=== PATIENT | male | born 1930 | race Caucasian/White ===

== ENCOUNTER 2018-04-11 14:40 | Inpatient (IN) ==
[2018-04-11] MEDS ORDERED: PANTOPRAZOLE 40 MG VIAL IV STA (15:14)
[2018-04-11] MEDS ORDERED: ALUM/MAG/SIMETH/LIDO VISC 1:1 30 ML BOTTLE PO STA (15:14)
[2018-04-11 15:59] LABS: Basophils # 0.1 10*3/uL (0.0-0.2); Basophils % 0.7 % (0.0-0.8); Eosinophils # 0.1 10*3/uL (0.0-0.87); Eosinophils % 0.8 % (0.00-10.9); Hematocrit 51.5 VOL% (42.0-52.0); Hemoglobin 17.2 GM/DL (14.0-18.0); Immature Granulocytes % 0.8 %; Immature Granulocytes Absolute 0.06 #; Lymphocytes # 1.3 10*3/uL (1.4-4.0); Lymphocytes % 17.2 % (21.2-54.2); Mean Corpuscular HGB Conc 33.4 GM/DL (32-36); Mean Corpuscular Hemoglobin 30 PG (27-34); Mean Corpuscular Volume 88.2 FL (87-102); Mean Platelet Volume 8.4 FL (9.6-12.0); Monocytes # 0.6 10*3/uL (0.11-0.8); Monocytes % 8.2 % (1.7-12.7); Neutrophils # 5.6 10*3/uL (1.4-7.4); Neutrophils % 72.3 % (38.7-73.9); Platelet Count 208 T/CUMM (130-400); Red Blood Count 5.84 MC/CUMM (3.8-5.5); Red Cell Distribution Width 13.9 % (9.3-17.3); White Blood Count 7.7 T/CUMM (4-12)
[2018-04-11 16:10] LABS: Albumin 3.6 G/DL (3.4-5.0); Bilirubin,Total 0.8 MG/DL (0.2-1.0); Calcium 8.6 MG/DL (8.5-10.1); Osmolality,Calculated 268.4 MOS/KG (273-304); Potassium 3.8 MMOL/L (3.5-5.1); Total Protein 7.3 G/DL (6.4-8.3)
[2018-04-11 16:20] LABS: Apearance,Urine CLEAR (Clear); Bilirubin,Urine Negative (Negative); Blood, Urine Negative (Negative); Glucose,Urine (UA) Negative (Negative); Ketones,Urine Negative (Negative); Nitrite,Urine Negative (Negative); Protein,Urine Negative; RBC,Urine 1 /HPF (0-4); Urine Color Yellow (Yellow); Urine Specific Gravity 1.013 (1.001-1.035); Urine Urobilinogen < 2.0 EU/DL (0.2-1.0); WBC,Urine <1 /HPF (0-6)
[2018-04-11] MEDS ORDERED: NITROGLYCERIN 2% OINT 1 INCH/GM PACK TOP STA (16:46)
[2018-04-11] MEDS ORDERED: ENOXAPARIN 100 MG/ML SYRINGE SUBCUT STA (16:46)
[2018-04-11] MEDS ORDERED: ASPIRIN CHEW 81 MG TABLET PO STA (16:57)
[2018-04-11] MEDS ORDERED: diphenhydrAMINE CAP 25 MG CAPSULE PO PRN (17:05)
[2018-04-11] MEDS ORDERED: POTASSIUM CHLORIDE 20 MEQ TABLET PO PRN (17:05)
[2018-04-11] MEDS ORDERED: ONDANSETRON 4 MG/2 ML VIAL IV PRN (17:05)
[2018-04-11] MEDS ORDERED: DOCUSATE SODIUM 100 MG CAPSULE PO PRN (17:05)
[2018-04-11] MEDS ORDERED: ZALEPLON 5 MG CAPSULE PO PRN (17:05)
[2018-04-11] MEDS ORDERED: MAGNESIUM SULF RIDER 4 GM in PREMIX 1 EACH IV PRN (17:05)
[2018-04-11] MEDS ORDERED: BISACODYL 5 MG TABLET PO PRN (17:05)
[2018-04-11] MEDS ORDERED: guaiFENesin/DM ER 600-30 MG TABLET PO PRN (17:05)
[2018-04-11] MEDS ORDERED: PROMETHAZINE 25 MG TABLET PO PRN (17:05)
[2018-04-11] MEDS ORDERED: MAGNESIUM SULF RIDER 2 GM in PREMIX 1 EACH IV PRN (17:05)
[2018-04-11] MEDS ORDERED: LACTULOSE 20 GM/30 ML UDCUP PO PRN (17:05)
[2018-04-11] MEDS ORDERED: MORPHINE 4 MG/1 ML VIAL IV PRN (17:05)
[2018-04-11] MEDS ORDERED: MECLIZINE 25 MG TABLET PO PRN (17:29)
[2018-04-11] MEDS ORDERED: NITROGLYCERIN SL 0.4 MG TABLET SL PRN (17:34)
[2018-04-11 17:48] LABS: Risk Ratio 4.18; Thyroid Stimulating Hormone 3.07 uIU/ml (0.358-3.74); VLDL CHOLESTEROL 42.6 MG/DL
[2018-04-11] MEDS: SODIUM CHLORIDE 0.9% 1,000 ML IV SCH (18:52)
[2018-04-11] MEDS: ATORVASTATIN 20 MG TABLET PO SCH (21:36)
[2018-04-11] MEDS: traZODone 50 MG TABLET PO SCH (21:36)
[2018-04-11] MEDS ORDERED: METOPROLOL TARTRATE 25 MG TABLET PO ONE (23:57)
[2018-04-12 04:38] LABS: Basophils # 0.1 10*3/uL (0.0-0.2); Eosinophils # 0.1 10*3/uL (0.0-0.87); Eosinophils % 1.4 % (0.00-10.9); Hematocrit 44.3 VOL% (42.0-52.0); Hemoglobin 14.9 GM/DL (14.0-18.0); Immature Granulocytes % 0.4 %; Immature Granulocytes Absolute 0.03 #; Lymphocytes # 1.7 10*3/uL (1.4-4.0); Lymphocytes % 23.8 % (21.2-54.2); Mean Corpuscular HGB Conc 33.6 GM/DL (32-36); Mean Corpuscular Hemoglobin 30 PG (27-34); Mean Corpuscular Volume 88.6 FL (87-102); Mean Platelet Volume 8.5 FL (9.6-12.0); Neutrophils # 4.4 10*3/uL (1.4-7.4); Neutrophils % 60.4 % (38.7-73.9); Platelet Count 226 T/CUMM (130-400); Red Cell Distribution Width 13.7 % (9.3-17.3); White Blood Count 7.3 T/CUMM (4-12)
[2018-04-12 04:47] LABS: Albumin 2.9 G/DL (3.4-5.0); Bilirubin,Total 0.5 MG/DL (0.2-1.0); CKMB % 5.7 %; Calcium 8.1 MG/DL (8.5-10.1); Osmolality,Calculated 263.7 MOS/KG (273-304); Potassium 3.6 MMOL/L (3.5-5.1); Total Protein 6.1 G/DL (6.4-8.3)
[2018-04-12 04:48] LABS: Troponin I 5.69 NG/ML (0.00-0.045)
[2018-04-12] MEDS ORDERED: ENOXAPARIN 100 MG/ML SYRINGE SUBCUT ONE (06:00)
[2018-04-12] MEDS: SODIUM CHLORIDE 0.9% 1,000 ML IV SCH ×2 (06:38→19:30)
[2018-04-12] MEDS ORDERED: CELECOXIB 200 MG CAPSULE PO SCH (09:00)
[2018-04-12 09:18] LABS: CKMB % 4.9 %
[2018-04-12 09:31] LABS: Troponin I 6.22 NG/ML (0.00-0.045)
[2018-04-12] MEDS: FAMOTIDINE 20 MG TABLET PO SCH (10:52)
[2018-04-12] MEDS: ASPIRIN EC 81 MG TABLET PO SCH (10:52)
[2018-04-12] MEDS: LISINOPRIL 20 MG TABLET PO SCH (10:52)
[2018-04-12] MEDS: PANTOPRAZOLE 40 MG VIAL IV SCH (10:52)
[2018-04-12] MEDS: LEVOTHYROXINE 75 MCG TABLET PO SCH (10:55)
[2018-04-12] MEDS: INDAPAMIDE 2.5 MG TABLET PO SCH (10:55)
[2018-04-12] MEDS: TAMSULOSIN 0.4 MG CAPSULE PO SCH (10:55)
[2018-04-12 12:14] LABS: CKMB % 4.3 %
[2018-04-12 12:16] LABS: Troponin I 5.35 NG/ML (0.00-0.045)
[2018-04-12] MEDS: traZODone 50 MG TABLET PO SCH (21:38)
[2018-04-12] MEDS: ATORVASTATIN 20 MG TABLET PO SCH (21:39)
[2018-04-13] MEDS: ALUMINUM/MAGNES/SIMETH MAX STR 30 ML UDCUP PO PRN ×2 (02:32→09:24)
[2018-04-13 05:02] LABS: Basophils # 0.1 10*3/uL (0.0-0.2); Basophils % 0.9 % (0.0-0.8); Eosinophils # 0.1 10*3/uL (0.0-0.87); Eosinophils % 1.9 % (0.00-10.9); Hematocrit 44.6 VOL% (42.0-52.0); Hemoglobin 14.4 GM/DL (14.0-18.0); Immature Granulocytes % 0.7 %; Immature Granulocytes Absolute 0.04 #; Lymphocytes # 1.3 10*3/uL (1.4-4.0); Lymphocytes % 23.1 % (21.2-54.2); Mean Corpuscular HGB Conc 32.3 GM/DL (32-36); Mean Corpuscular Hemoglobin 29 PG (27-34); Mean Corpuscular Volume 90.3 FL (87-102); Mean Platelet Volume 8.7 FL (9.6-12.0); Monocytes # 0.7 10*3/uL (0.11-0.8); Monocytes % 11.4 % (1.7-12.7); Neutrophils # 3.6 10*3/uL (1.4-7.4); Platelet Count 180 T/CUMM (130-400); Red Blood Count 4.94 MC/CUMM (3.8-5.5); Red Cell Distribution Width 13.8 % (9.3-17.3); White Blood Count 5.8 T/CUMM (4-12)
[2018-04-13 05:34] LABS: Blood Urea Nitrogen 16 MG/DL (7-18); Calcium 7.8 MG/DL (8.5-10.1); Glucose 106 MG/DL (74-106); Osmolality,Calculated 275.7 MOS/KG (273-304); Sodium 138 MMOL/L (136-145)
[2018-04-13] MEDS: LISINOPRIL 20 MG TABLET PO SCH (09:24)
[2018-04-13] MEDS: FAMOTIDINE 20 MG TABLET PO SCH (09:24)
[2018-04-13] MEDS: TAMSULOSIN 0.4 MG CAPSULE PO SCH (09:24)
[2018-04-13] MEDS: LEVOTHYROXINE 75 MCG TABLET PO SCH (09:24)
[2018-04-13] MEDS: INDAPAMIDE 2.5 MG TABLET PO SCH (09:24)
[2018-04-13] MEDS: PANTOPRAZOLE 40 MG VIAL IV SCH (09:28)
[2018-04-13] MEDS: ASPIRIN EC 81 MG TABLET PO SCH (09:30)
[2018-04-13] MEDS: SODIUM CHLORIDE 0.9% 1,000 ML IV SCH ×2 (09:32→23:00)
[2018-04-13] MEDS ORDERED: MAGNESIUM SULF RIDER 2 GM in PREMIX 1 EACH IV PRN (16:28)
[2018-04-13] MEDS ORDERED: POTASSIUM CHLORIDE RIDER 10 MEQ in PREMIX 1 EACH IV PRN (16:28)
[2018-04-13] MEDS: ATORVASTATIN 20 MG TABLET PO SCH (21:46)
[2018-04-13] MEDS: traZODone 50 MG TABLET PO SCH (21:46)
[2018-04-14 04:22] LABS: Basophils # 0.1 10*3/uL (0.0-0.2); Basophils % 0.8 % (0.0-0.8); Eosinophils # 0.2 10*3/uL (0.0-0.87); Eosinophils % 2.6 % (0.00-10.9); Hematocrit 45.3 VOL% (42.0-52.0); Hemoglobin 14.6 GM/DL (14.0-18.0); Immature Granulocytes % 0.5 %; Immature Granulocytes Absolute 0.03 #; Lymphocytes # 1.5 10*3/uL (1.4-4.0); Lymphocytes % 22.3 % (21.2-54.2); Mean Corpuscular HGB Conc 32.2 GM/DL (32-36); Mean Corpuscular Hemoglobin 29 PG (27-34); Mean Corpuscular Volume 90.4 FL (87-102); Mean Platelet Volume 8.4 FL (9.6-12.0); Monocytes # 0.7 10*3/uL (0.11-0.8); Neutrophils # 4.2 10*3/uL (1.4-7.4); Neutrophils % 62.8 % (38.7-73.9); Platelet Count 173 T/CUMM (130-400); Red Blood Count 5.01 MC/CUMM (3.8-5.5); White Blood Count 6.6 T/CUMM (4-12)
[2018-04-14 04:50] LABS: Calcium 7.8 MG/DL (8.5-10.1); Osmolality,Calculated 282.3 MOS/KG (273-304); Potassium 3.8 MMOL/L (3.5-5.1)
[2018-04-14] MEDS ORDERED: HEPARIN/NACL 0.9% 2 UNITS/ML 1,000 ML IV ONE (06:46)
[2018-04-14] MEDS: ASPIRIN EC 81 MG TABLET PO SCH ×2 (07:04→10:23)
[2018-04-14] MEDS: INDAPAMIDE 2.5 MG TABLET PO SCH ×2 (07:05→10:23)
[2018-04-14] MEDS: LISINOPRIL 20 MG TABLET PO SCH ×2 (07:05→10:23)
[2018-04-14] MEDS ORDERED: LIDOCAINE 1% 20 ML VIAL ONE (07:15)
[2018-04-14] MEDS ORDERED: HYDROmorphone 2 MG/1 ML VIAL ONE (07:18)
[2018-04-14] MEDS ORDERED: MIDAZOLAM 2 MG/2 ML VIAL ONE (07:18)
[2018-04-14] MEDS: TAMSULOSIN 0.4 MG CAPSULE PO SCH (10:13)
[2018-04-14] MEDS: FAMOTIDINE 20 MG TABLET PO SCH (10:13)
[2018-04-14] MEDS: PANTOPRAZOLE 40 MG VIAL IV SCH (10:13)
[2018-04-14] MEDS: LEVOTHYROXINE 75 MCG TABLET PO SCH (10:13)
[2018-04-14] MEDS: SODIUM CHLORIDE 0.9% 1,000 ML IV SCH (16:11)
[2018-04-14] MEDS: traZODone 50 MG TABLET PO SCH (20:43)
[2018-04-14] MEDS: ATORVASTATIN 20 MG TABLET PO SCH (20:43)
[2018-04-15 04:09] LABS: Basophils # 0.1 10*3/uL (0.0-0.2); Basophils % 0.7 % (0.0-0.8); Eosinophils # 0.2 10*3/uL (0.0-0.87); Eosinophils % 3.1 % (0.00-10.9); Hematocrit 43.7 VOL% (42.0-52.0); Immature Granulocytes % 0.4 %; Immature Granulocytes Absolute 0.03 #; Lymphocytes # 1.4 10*3/uL (1.4-4.0); Mean Corpuscular Hemoglobin 29 PG (27-34); Mean Corpuscular Volume 90.5 FL (87-102); Mean Platelet Volume 8.6 FL (9.6-12.0); Monocytes # 0.7 10*3/uL (0.11-0.8); Monocytes % 9.7 % (1.7-12.7); Neutrophils # 4.7 10*3/uL (1.4-7.4); Neutrophils % 66.1 % (38.7-73.9); Platelet Count 182 T/CUMM (130-400); Red Blood Count 4.83 MC/CUMM (3.8-5.5)
[2018-04-15 04:35] LABS: Calcium 7.9 MG/DL (8.5-10.1); Osmolality,Calculated 275.7 MOS/KG (273-304); Potassium 3.9 MMOL/L (3.5-5.1)
[2018-04-15] MEDS: SODIUM CHLORIDE 0.9% 1,000 ML IV SCH (05:45)
[2018-04-15] MEDS: TAMSULOSIN 0.4 MG CAPSULE PO SCH (08:51)
[2018-04-15] MEDS: LEVOTHYROXINE 75 MCG TABLET PO SCH (08:51)
[2018-04-15] MEDS: INDAPAMIDE 2.5 MG TABLET PO SCH (08:51)
[2018-04-15] MEDS: LISINOPRIL 20 MG TABLET PO SCH (08:51)
[2018-04-15] MEDS: FAMOTIDINE 20 MG TABLET PO SCH (08:51)
[2018-04-15] MEDS: PANTOPRAZOLE 40 MG VIAL IV SCH (08:52)
[2018-04-15] MEDS ORDERED: ETOMIDATE 20 MG/10 ML VIAL IV ONE (10:00)
[2018-04-15] MEDS ORDERED: PROPOFOL 200 MG/20 ML VIAL IV ONE (10:00)
[2018-04-15] MEDS ORDERED: LIDOCAINE 2% 5 ML VIAL ONE (10:00)
[2018-04-15 14:36] VITALS: BP 133/60
[2018-04-15] MEDS: ASPIRIN EC 81 MG TABLET PO SCH (15:03)
[2018-04-15] MEDS ORDERED: PANTOPRAZOLE 40 MG TABLET PO SCH (21:00)
[2018-04-15] MEDS ORDERED: CARVEDILOL 3.125 MG TABLET PO SCH (21:00)
== END 2018-04-15 15:43 | disposition home health service (06) | DRG 281 ==
LOC: N.EDINP 14:40 → N.ED 14:40 → N.TELEN 19:31
PROVIDERS: ADMIT Nurse Practitioner Gerontology; ATTEND Nurse Practitioner Gerontology
PROC: CLCCHCL (ICD-10-PCS; 2018-04-14 07:45)

== ENCOUNTER 2018-10-25 20:47 | Inpatient (IN) ==
[2018-10-25] MEDS ORDERED: SODIUM CHLORIDE 0.9% 500 ML IV STA (21:35)
[2018-10-25] MEDS ORDERED: MORPHINE 4 MG/1 ML VIAL IV STA (21:35)
[2018-10-25] MEDS ORDERED: ONDANSETRON 4 MG/2 ML VIAL IV STA (21:35)
[2018-10-25 21:55] LABS: Basophils # 0.1 10*3/uL (0.0-0.2); Basophils % 0.9 % (0.0-0.8); Eosinophils # 0.2 10*3/uL (0.0-0.87); Eosinophils % 2.3 % (0.00-10.9); Hematocrit 49.9 VOL% (42.0-52.0); Hemoglobin 16.4 GM/DL (14.0-18.0); Immature Granulocytes % 0.7 %; Immature Granulocytes Absolute 0.05 #; Lymphocytes # 1.5 10*3/uL (1.4-4.0); Lymphocytes % 21.3 % (21.2-54.2); Mean Corpuscular HGB Conc 32.9 GM/DL (32-36); Mean Corpuscular Volume 91.9 FL (87-102); Mean Platelet Volume 8.8 FL (9.6-12.0); Monocytes % 10.2 % (1.7-12.7); Neutrophils % 64.6 % (38.7-73.9); Platelet Count 191 T/CUMM (130-400); Red Blood Count 5.43 MC/CUMM (3.8-5.5); Red Cell Distribution Width 14.1 % (9.3-17.3); White Blood Count 6.9 T/CUMM (4-12)
[2018-10-25 22:04] LABS: Apearance,Urine CLEAR (Clear); Bilirubin,Urine Negative (Negative); Blood, Urine Small mg/dL (Negative); Glucose,Urine (UA) Negative (Negative); Hyaline Casts,Urine 1 /LPF (0-3); Ketones,Urine Negative (Negative); Mucus,Urine Occasional /LPF (Occasional); Nitrite,Urine Negative (Negative); Protein,Urine Negative; RBC,Urine 1 /HPF (0-4); Urine Color Yellow (Yellow); Urine Specific Gravity 1.009 (1.001-1.035); Urine Urobilinogen < 2.0 EU/DL (0.2-1.0); WBC,Urine <1 /HPF (0-6)
[2018-10-25 22:15] LABS: Alanine Aminotransferase 16 U/L (16-61); Albumin 3.7 G/DL (3.4-5.0); Alkaline Phosphatase 92 U/L (45-117); Amylase 46 U/L (25-115); Aspartate Amino Transferase 14 U/L (0-37); Blood Urea Nitrogen 10 MG/DL (7-18); Calcium 8.8 MG/DL (8.5-10.1); Glucose 136 MG/DL (74-106); Osmolality,Calculated 279.4 MOS/KG (273-304); Total Protein 7.4 G/DL (6.4-8.3)
[2018-10-26] MEDS ORDERED: ONDANSETRON 4 MG/2 ML VIAL IV PRN (00:29)
[2018-10-26] MEDS ORDERED: ACETAMINOPHEN 325 MG TABLET PO PRN (00:29)
[2018-10-26] MEDS: HYDROmorphone 2 MG/1 ML VIAL IV PRN ×2 (01:11→16:23)
[2018-10-26] MEDS: SODIUM CHLORIDE 0.9% 1,000 ML IV SCH ×2 (01:16→16:27)
[2018-10-26 01:32] LABS: Basophils % 0.5 % (0.0-0.8); Eosinophils # 0.2 10*3/uL (0.0-0.87); Eosinophils % 2.3 % (0.00-10.9); Hematocrit 47.9 VOL% (42.0-52.0); Hemoglobin 15.8 GM/DL (14.0-18.0); Immature Granulocytes % 0.5 %; Immature Granulocytes Absolute 0.04 #; Lymphocytes # 1.7 10*3/uL (1.4-4.0); Lymphocytes % 20.1 % (21.2-54.2); Mean Corpuscular Volume 90.5 FL (87-102); Mean Platelet Volume 8.9 FL (9.6-12.0); Monocytes % 9.3 % (1.7-12.7); Neutrophils % 67.3 % (38.7-73.9); Platelet Count 184 T/CUMM (130-400); Red Blood Count 5.29 MC/CUMM (3.8-5.5); Red Cell Distribution Width 13.8 % (9.3-17.3); White Blood Count 8.3 T/CUMM (4-12)
[2018-10-26 01:55] LABS: Albumin 3.4 G/DL (3.4-5.0); Bilirubin,Total 0.6 MG/DL (0.2-1.0); Calcium 8.8 MG/DL (8.5-10.1); Osmolality,Calculated 279.3 MOS/KG (273-304)
[2018-10-26] MEDS ORDERED: MECLIZINE 25 MG TABLET PO PRN (09:48)
[2018-10-26] MEDS ORDERED: NITROGLYCERIN SL 0.4 MG TABLET SL PRN (09:48)
[2018-10-26] MEDS: FAMOTIDINE 20 MG/2 ML VIAL IV SCH ×2 (09:51→21:28)
[2018-10-26] MEDS ORDERED: cefOXitin 2,000 MG in SYRINGE 1 EACH IV ONE (10:30)
[2018-10-26] MEDS ORDERED: LIDOCAINE MPF 1% /EPI 30 ML VIAL ONE (12:28)
[2018-10-26] MEDS ORDERED: BUPIVACAINE MPF 0.25% 30 ML VIAL ONE (12:28)
[2018-10-26] MEDS ORDERED: SEVOFLURANE 1 UNIT/15 MINUTE INH ONE (14:42)
[2018-10-26] MEDS ORDERED: fentaNYL 100 MCG/2 ML VIAL ONE (14:42)
[2018-10-26] MEDS ORDERED: CALCIUM CHLORIDE 1,000 MG/10 ML VIAL IV ONE (14:42)
[2018-10-26] MEDS ORDERED: PROPOFOL 200 MG/20 ML VIAL IV ONE (14:42)
[2018-10-26] MEDS ORDERED: PHENYLEPHRINE 1 MG/10 ML SYRINGE IV ONE (14:43)
[2018-10-26] MEDS ORDERED: ONDANSETRON 4 MG/2 ML VIAL ONE (14:43)
[2018-10-26] MEDS ORDERED: ePHEDrine 50 MG/ML AMP ONE (14:43)
[2018-10-26] MEDS ORDERED: ROCURONIUM 100 MG/10 ML VIAL IV ONE (14:43)
[2018-10-26] MEDS ORDERED: HALOPERIDOL 5 MG/ML AMP IM PRN (16:55)
[2018-10-26] MEDS: METOPROLOL TARTRATE 5 MG/5 ML VIAL IV SCH (18:30)
[2018-10-26] MEDS: CARVEDILOL 3.125 MG TABLET PO SCH (21:22)
[2018-10-27] MEDS: METOPROLOL TARTRATE 5 MG/5 ML VIAL IV SCH ×3 (00:46→12:00)
[2018-10-27] MEDS: SODIUM CHLORIDE 0.9% 1,000 ML IV SCH (03:04)
[2018-10-27 06:13] LABS: Basophils % 0.4 % (0.0-0.8); Eosinophils # 0.1 10*3/uL (0.0-0.87); Eosinophils % 0.8 % (0.00-10.9); Hematocrit 44.3 VOL% (42.0-52.0); Hemoglobin 14.7 GM/DL (14.0-18.0); Immature Granulocytes % 0.7 %; Immature Granulocytes Absolute 0.06 #; Lymphocytes % 11.1 % (21.2-54.2); Mean Corpuscular HGB Conc 33.2 GM/DL (32-36); Mean Corpuscular Volume 91.2 FL (87-102); Mean Platelet Volume 8.8 FL (9.6-12.0); Monocytes % 11.4 % (1.7-12.7); Neutrophils % 75.6 % (38.7-73.9); Platelet Count 173 T/CUMM (130-400); Red Blood Count 4.86 MC/CUMM (3.8-5.5); Red Cell Distribution Width 13.9 % (9.3-17.3); White Blood Count 9.2 T/CUMM (4-12)
[2018-10-27 07:43] LABS: Free T4 (Free Thyroxine) 1.07 NG/DL (0.76-1.46)
[2018-10-27] MEDS ORDERED: TAMSULOSIN 0.4 MG CAPSULE PO SCH (09:00)
[2018-10-27] MEDS ORDERED: LEVOTHYROXINE 75 MCG TABLET PO SCH (09:00)
[2018-10-27] MEDS ORDERED: INDAPAMIDE 2.5 MG TABLET PO SCH (09:00)
[2018-10-27] MEDS ORDERED: LISINOPRIL 20 MG TABLET PO SCH (09:00)
[2018-10-27] MEDS ORDERED: ASPIRIN EC 81 MG TABLET PO SCH (09:00)
[2018-10-27] MEDS ORDERED: PANTOPRAZOLE 40 MG TABLET PO SCH (09:00)
[2018-10-27] MEDS: CARVEDILOL 3.125 MG TABLET PO SCH (09:19)
[2018-10-27] MEDS: FAMOTIDINE 20 MG/2 ML VIAL IV SCH (09:20)
[2018-10-27 12:14] VITALS: BP 112/64
== END 2018-10-27 12:07 | disposition home or self-care (01) | DRG 343 ==
LOC: N.ED 20:47 → N.EDINP 23:38 → N.3E 23:59
PROVIDERS: ADMIT Surgery; ATTEND Surgery

== ENCOUNTER 2018-10-29 18:50 | Observation (INO) ==
[2018-10-29 20:18] LABS: Basophils # 0.1 10*3/uL (0.0-0.2); Basophils % 0.8 % (0.0-0.8); Eosinophils # 0.5 10*3/uL (0.0-0.87); Eosinophils % 8.7 % (0.00-10.9); Hematocrit 45.3 VOL% (42.0-52.0); Hemoglobin 14.9 GM/DL (14.0-18.0); Immature Granulocytes % 0.8 %; Immature Granulocytes Absolute 0.05 #; Lymphocytes # 1.5 10*3/uL (1.4-4.0); Lymphocytes % 23.9 % (21.2-54.2); Mean Corpuscular HGB Conc 32.9 GM/DL (32-36); Mean Platelet Volume 8.5 FL (9.6-12.0); Monocytes % 11.3 % (1.7-12.7); Neutrophils % 54.5 % (38.7-73.9); Platelet Count 203 T/CUMM (130-400); Red Blood Count 4.98 MC/CUMM (3.8-5.5); Red Cell Distribution Width 13.7 % (9.3-17.3); White Blood Count 6.2 T/CUMM (4-12)
[2018-10-29 20:39] LABS: Albumin 3.2 G/DL (3.4-5.0); Bilirubin,Total 0.4 MG/DL (0.2-1.0); Calcium 8.8 MG/DL (8.5-10.1); Osmolality,Calculated 277.5 MOS/KG (273-304); Total Protein 7.1 G/DL (6.4-8.3)
[2018-10-29 20:44] LABS: Apearance,Urine CLEAR (Clear); Bilirubin,Urine Negative (Negative); Blood, Urine Negative (Negative); Glucose,Urine (UA) Negative (Negative); Ketones,Urine Negative (Negative); Mucus,Urine Occasional /LPF (Occasional); Nitrite,Urine Negative (Negative); Protein,Urine Negative; Urine Color Colorless (Yellow); Urine Specific Gravity 1.008 (1.001-1.035); Urine Urobilinogen < 2.0 EU/DL (0.2-1.0); WBC,Urine <1 /HPF (0-6)
[2018-10-29] MEDS ORDERED: ACETAMINOPHEN 325 MG TABLET PO PRN (21:02)
[2018-10-29] MEDS ORDERED: ONDANSETRON 4 MG/2 ML VIAL IV PRN (21:02)
[2018-10-29] MEDS: DEXTROSE 5% LACTATED RINGERS 1,000 ML IV SCH (23:07)
[2018-10-30] MEDS: PANTOPRAZOLE 40 MG VIAL IV SCH (08:28)
[2018-10-30] MEDS ORDERED: NITROGLYCERIN SL 0.4 MG TABLET SL PRN (11:09)
[2018-10-30] MEDS ORDERED: MECLIZINE 25 MG TABLET PO PRN (11:09)
[2018-10-30] MEDS: PANTOPRAZOLE 40 MG TABLET PO SCH (11:38)
[2018-10-30] MEDS: LEVOTHYROXINE 75 MCG TABLET PO SCH (11:39)
[2018-10-30] MEDS: CELECOXIB 200 MG CAPSULE PO SCH (11:40)
[2018-10-30] MEDS: TAMSULOSIN 0.4 MG CAPSULE PO SCH (11:41)
[2018-10-30] MEDS: CARVEDILOL 3.125 MG TABLET PO SCH ×2 (11:41→21:39)
[2018-10-30] MEDS: INDAPAMIDE 2.5 MG TABLET PO SCH (11:42)
[2018-10-30] MEDS: LISINOPRIL 20 MG TABLET PO SCH (11:45)
[2018-10-30] MEDS: DEXTROSE 5% LACTATED RINGERS 1,000 ML IV SCH (17:27)
[2018-10-30] MEDS: METOCLOPRAMIDE 10 MG/2 ML VIAL IV SCH ×2 (17:27→23:26)
[2018-10-30] MEDS: BISACODYL 5 MG TABLET PO SCH (17:35)
[2018-10-30] MEDS ORDERED: POLYETHYLENE GLYCOL POWDER 255 GM BOTTLE PO ONE (18:00)
[2018-10-30] MEDS: ATORVASTATIN 20 MG TABLET PO SCH (21:40)
[2018-10-30] MEDS: traZODone 50 MG TABLET PO SCH (21:40)
[2018-10-31] MEDS: BISACODYL 5 MG TABLET PO SCH ×2 (02:16→09:30)
[2018-10-31] MEDS: LEVOTHYROXINE 75 MCG TABLET PO SCH (06:35)
[2018-10-31] MEDS: METOCLOPRAMIDE 10 MG/2 ML VIAL IV SCH ×2 (06:35→13:44)
[2018-10-31] MEDS: LISINOPRIL 20 MG TABLET PO SCH (09:32)
[2018-10-31] MEDS: CELECOXIB 200 MG CAPSULE PO SCH (09:32)
[2018-10-31] MEDS: CARVEDILOL 3.125 MG TABLET PO SCH ×2 (09:32→21:32)
[2018-10-31] MEDS: PANTOPRAZOLE 40 MG VIAL IV SCH (09:32)
[2018-10-31] MEDS: INDAPAMIDE 2.5 MG TABLET PO SCH (09:32)
[2018-10-31] MEDS: ASPIRIN EC 81 MG TABLET PO SCH (09:32)
[2018-10-31] MEDS: PANTOPRAZOLE 40 MG TABLET PO SCH (09:33)
[2018-10-31] MEDS: TAMSULOSIN 0.4 MG CAPSULE PO SCH (09:33)
[2018-10-31] MEDS: DEXTROSE 5% LACTATED RINGERS 1,000 ML IV SCH (12:43)
[2018-10-31] MEDS ORDERED: LINACLOTIDE 145 MCG CAPSULE PO ONE (14:30)
[2018-10-31] MEDS: ATORVASTATIN 20 MG TABLET PO SCH (21:32)
[2018-10-31] MEDS: traZODone 50 MG TABLET PO SCH (21:32)
[2018-11-01] MEDS: LEVOTHYROXINE 75 MCG TABLET PO SCH (06:13)
[2018-11-01] MEDS ORDERED: LINACLOTIDE 145 MCG CAPSULE PO SCH (07:30)
[2018-11-01] MEDS: INDAPAMIDE 2.5 MG TABLET PO SCH (08:40)
[2018-11-01] MEDS: PANTOPRAZOLE 40 MG TABLET PO SCH (08:41)
[2018-11-01] MEDS: CARVEDILOL 3.125 MG TABLET PO SCH (08:41)
[2018-11-01] MEDS: LISINOPRIL 20 MG TABLET PO SCH (08:42)
[2018-11-01] MEDS: TAMSULOSIN 0.4 MG CAPSULE PO SCH (08:42)
[2018-11-01] MEDS: ASPIRIN EC 81 MG TABLET PO SCH (08:42)
[2018-11-01] MEDS: CELECOXIB 200 MG CAPSULE PO SCH (08:42)
[2018-11-01 11:26] VITALS: BP 138/74
== END 2018-11-01 11:50 | disposition home or self-care (01) ==
LOC: N.ED 18:50 → N.EDINP 18:50 → N.3E 21:30
PROVIDERS: ADMIT Surgery; ATTEND Surgery

== ENCOUNTER 2021-10-18 12:26 | Inpatient (IN) ==
[2021-10-18 14:47] LABS: Basophils % 0.3 % (0.0-0.8); Eosinophils % 0.3 % (0.00-10.9); Hematocrit 44.1 VOL% (42.0-52.0); Hemoglobin 15.6 GM/DL (14.0-18.0); Immature Granulocytes % 1.2 %; Immature Granulocytes Absolute 0.15 #; Lymphocytes % 7.9 % (21.2-54.2); Mean Corpuscular HGB Conc 35.4 GM/DL (32-36); Mean Corpuscular Volume 87.3 FL (87-102); Mean Platelet Volume 8.2 FL (9.6-12.0); Monocytes # 1.3 10*3/uL (0.11-0.8); Monocytes % 10.4 % (1.7-12.7); Neutrophils % 79.9 % (38.7-73.9); Platelet Count 196 T/CUMM (130-400); Red Blood Count 5.05 MC/CUMM (3.8-5.5); Red Cell Distribution Width 14.3 % (9.3-17.3); White Blood Count 12.9 T/CUMM (4-12)
[2021-10-18 14:56] LABS: Hyaline Casts,Urine 13 /LPF (0-3); Mucus,Urine Few /LPF (Occasional)
[2021-10-18 14:58] LABS: Glucose,Urine (UA) Negative (Negative); Ketones,Urine 15 mg/dL (Negative); Nitrite,Urine Negative (Negative); Protein,Urine 100 mg/dL (Negative); Urine Appearance Cloudy (Clear); Urine Color Yellow (Yellow); Urine pH > 9.0 (4.5-8.0)
[2021-10-18 14:59] LABS: Bilirubin,Urine Moderate mg/dL (Negative); Blood, Urine Negative (Negative); Triple Phosphate Crystal,Urine Many /HPF (Few); Urine Urobilinogen 0.2 eU/dL (<2.0)
[2021-10-18 15:11] LABS: Albumin 3.3 G/DL (3.4-5.0); Bilirubin,Total 0.8 MG/DL (0.20-1.00); Calcium 8.6 MG/DL (8.5-10.1); Osmolality,Calculated 254.8 MOS/KG (273-304); Potassium 3.5 MMOL/L (3.5-5.1); Total Protein 6.4 G/DL (6.4-8.2)
[2021-10-18 15:20] LABS: INR 0.9; PT Patient Result 10.5 SECS (10.1-12.1)
[2021-10-18] MEDS ORDERED: SODIUM CHLORIDE 0.9% 500 ML IV STA (15:32)
[2021-10-18] MEDS ORDERED: ONDANSETRON 4 MG/2 ML VIAL IV PRN (15:49)
[2021-10-18] MEDS ORDERED: GLUCAGON 1 MG VIAL IM PRN (15:49)
[2021-10-18] MEDS ORDERED: DEXTROSE 10% 250 ML BAG IV PRN (15:55)
[2021-10-18] MEDS: INSULIN REGULAR 100 UNIT/ML SUBCUT SCH ×2 (16:28→22:27)
[2021-10-18] MEDS: SODIUM CHLORIDE 0.9% 1,000 ML IV SCH (19:25)
[2021-10-18] MEDS: PANTOPRAZOLE 40 MG TABLET PO SCH (19:26)
[2021-10-18] MEDS: ALBUTEROL/IPRATROPIUM 3 ML NEB RESP TX SCH (20:03)
[2021-10-18] MEDS: ENOXAPARIN 40 MG/0.4 ML SYRINGE SUBCUT SCH (22:27)
[2021-10-18] MEDS: AMITRIPTYLINE 100 MG TABLET PO SCH (23:15)
[2021-10-19] MEDS: ALBUTEROL/IPRATROPIUM 3 ML NEB RESP TX SCH ×4 (00:34→19:10)
[2021-10-19] MEDS: SODIUM CHLORIDE 0.9% 1,000 ML IV SCH (05:37)
[2021-10-19 06:30] LABS: Basophils % 0.4 % (0.0-0.8); Eosinophils # 0.1 10*3/uL (0.0-0.87); Eosinophils % 0.5 % (0.00-10.9); Hematocrit 43.8 VOL% (42.0-52.0); Hemoglobin 15.1 GM/DL (14.0-18.0); Immature Granulocytes % 1.5 %; Immature Granulocytes Absolute 0.15 #; Lymphocytes # 1.2 10*3/uL (1.4-4.0); Lymphocytes % 12.4 % (21.2-54.2); Mean Corpuscular HGB Conc 34.5 GM/DL (32-36); Mean Corpuscular Volume 88.1 FL (87-102); Mean Platelet Volume 8.4 FL (9.6-12.0); Monocytes # 0.9 10*3/uL (0.11-0.8); Monocytes % 9.4 % (1.7-12.7); Neutrophils % 75.8 % (38.7-73.9); Platelet Count 208 T/CUMM (130-400); Red Blood Count 4.97 MC/CUMM (3.8-5.5); Red Cell Distribution Width 14.2 % (9.3-17.3); White Blood Count 9.7 T/CUMM (4-12)
[2021-10-19 06:58] LABS: Albumin 3.1 G/DL (3.4-5.0); Bilirubin,Total 0.9 MG/DL (0.20-1.00); Calcium 8.6 MG/DL (8.5-10.1); Osmolality,Calculated 258.1 MOS/KG (273-304); Potassium 3.1 MMOL/L (3.5-5.1); Total Protein 6.1 G/DL (6.4-8.2)
[2021-10-19] MEDS ORDERED: AZITHROMYCIN INJ 500 MG in SODIUM CHLORIDE 0.9% 250 ML IV SCH (09:00)
[2021-10-19] MEDS ORDERED: POTASSIUM CHLORIDE 20 MEQ TABLET PO ONE (09:00)
[2021-10-19] MEDS: PANTOPRAZOLE 40 MG TABLET PO SCH (09:57)
[2021-10-19] MEDS: INSULIN REGULAR 100 UNIT/ML SUBCUT SCH ×4 (09:58→20:16)
[2021-10-19] MEDS ORDERED: cefTRIAXone 1,000 MG in SODIUM CHLORIDE 0.9% 100 ML IV SCH (10:00)
[2021-10-19] MEDS: LACTATED RINGERS 1,000 ML IV SCH ×2 (10:04→23:24)
[2021-10-19] MEDS: PIPERACILLIN/TAZOBACTAM 3,375 MG in SODIUM CHLORIDE 0.9% 100 ML IV SCH ×2 (10:04→18:09)
[2021-10-19 12:01] LABS: Calcium 8.1 MG/DL (8.5-10.1); Osmolality,Calculated 259.1 MOS/KG (273-304); Potassium 3.2 MMOL/L (3.5-5.1)
[2021-10-19] MEDS: DOCUSATE SODIUM 100 MG CAPSULE PO SCH ×2 (16:29→20:16)
[2021-10-19] MEDS: ENOXAPARIN 40 MG/0.4 ML SYRINGE SUBCUT SCH (20:16)
[2021-10-19] MEDS: AMITRIPTYLINE 100 MG TABLET PO SCH (20:16)
[2021-10-19] MEDS: ACETAMINOPHEN 325 MG TABLET PO PRN (20:16)
[2021-10-19] MEDS ORDERED: LORazepam 0.5 MG TABLET PO ONE (22:47)
[2021-10-20] MEDS: ACETAMINOPHEN 325 MG TABLET PO PRN (00:35)
[2021-10-20] MEDS: ALBUTEROL/IPRATROPIUM 3 ML NEB RESP TX SCH ×4 (00:50→19:02)
[2021-10-20] MEDS: PIPERACILLIN/TAZOBACTAM 3,375 MG in SODIUM CHLORIDE 0.9% 100 ML IV SCH ×4 (02:20→16:55)
[2021-10-20] MEDS: ZIPRASIDONE 20 MG/1 ML VIAL IM PRN (02:42)
[2021-10-20 05:26] LABS: Basophils # 0.1 10*3/uL (0.0-0.2); Basophils % 0.5 % (0.0-0.8); Eosinophils % 0.4 % (0.00-10.9); Hematocrit 42.6 VOL% (42.0-52.0); Hemoglobin 14.9 GM/DL (14.0-18.0); Immature Granulocytes % 1.4 %; Immature Granulocytes Absolute 0.15 #; Lymphocytes # 0.8 10*3/uL (1.4-4.0); Lymphocytes % 7.1 % (21.2-54.2); Mean Corpuscular Volume 88.6 FL (87-102); Mean Platelet Volume 8.1 FL (9.6-12.0); Monocytes % 9.2 % (1.7-12.7); Neutrophils % 81.4 % (38.7-73.9); Platelet Count 198 T/CUMM (130-400); Red Blood Count 4.81 MC/CUMM (3.8-5.5); Red Cell Distribution Width 14.1 % (9.3-17.3); White Blood Count 10.5 T/CUMM (4-12)
[2021-10-20 05:47] LABS: Albumin 2.7 G/DL (3.4-5.0); Bilirubin,Total 0.9 MG/DL (0.20-1.00); Calcium 8.3 MG/DL (8.5-10.1); Osmolality,Calculated 259.7 MOS/KG (273-304); Potassium 3.3 MMOL/L (3.5-5.1); Total Protein 5.7 G/DL (6.4-8.2)
[2021-10-20] MEDS: INSULIN REGULAR 100 UNIT/ML SUBCUT SCH ×4 (07:29→20:10)
[2021-10-20] MEDS: DOCUSATE SODIUM 100 MG CAPSULE PO SCH ×2 (08:59→20:06)
[2021-10-20] MEDS: PANTOPRAZOLE 40 MG TABLET PO SCH (08:59)
[2021-10-20] MEDS ORDERED: NITROGLYCERIN SL 0.4 MG TABLET SL PRN (09:54)
[2021-10-20] MEDS ORDERED: MAGNESIUM SULF RIDER 4 GM/100 ML PREMIX IV PRN (09:54)
[2021-10-20] MEDS ORDERED: MAGNESIUM SULF RIDER 2 GM/50 ML PREMIX IV PRN (09:54)
[2021-10-20] MEDS: SODIUM CHLORIDE 0.9% 1,000 ML IV SCH (13:42)
[2021-10-20] MEDS: carvediloL 3.125 MG TABLET PO SCH (16:49)
[2021-10-20] MEDS: TERAZOSIN 5 MG CAPSULE PO SCH (20:06)
[2021-10-20] MEDS: AMITRIPTYLINE 100 MG TABLET PO SCH (20:06)
[2021-10-20] MEDS: QUEtiapine 25 MG TABLET PO SCH (20:07)
[2021-10-20] MEDS: ENOXAPARIN 40 MG/0.4 ML SYRINGE SUBCUT SCH (20:07)
[2021-10-20] MEDS: FLUTICASONE 50 MCG NASAL SPRAY 16 GM BOTTLE BOTH NARES SCH (20:09)
[2021-10-21] MEDS: ALBUTEROL/IPRATROPIUM 3 ML NEB RESP TX SCH ×4 (00:02→19:27)
[2021-10-21] MEDS: PIPERACILLIN/TAZOBACTAM 3,375 MG in SODIUM CHLORIDE 0.9% 100 ML IV SCH ×3 (00:10→17:38)
[2021-10-21] MEDS: POTASSIUM CHLORIDE 20 MEQ TABLET PO PRN ×5 (00:11→21:10)
[2021-10-21] MEDS ORDERED: ONDANSETRON 4 MG/2 ML VIAL IV PRN (00:25)
[2021-10-21] MEDS: ACETAMINOPHEN 325 MG TABLET PO PRN (01:33)
[2021-10-21] MEDS: NICOTINE 21 MG/24 HR PATCH TRANSDERM PRN (01:47)
[2021-10-21 06:04] LABS: Basophils # 0.1 10*3/uL (0.0-0.2); Basophils % 0.5 % (0.0-0.8); Eosinophils # 0.1 10*3/uL (0.0-0.87); Eosinophils % 0.9 % (0.00-10.9); Hematocrit 40.6 VOL% (42.0-52.0); Immature Granulocytes % 1.2 %; Immature Granulocytes Absolute 0.12 #; Lymphocytes % 9.9 % (21.2-54.2); Mean Corpuscular HGB Conc 34.5 GM/DL (32-36); Mean Corpuscular Volume 89.4 FL (87-102); Mean Platelet Volume 7.9 FL (9.6-12.0); Monocytes % 10.1 % (1.7-12.7); Neutrophils % 77.4 % (38.7-73.9); Platelet Count 182 T/CUMM (130-400); Red Blood Count 4.54 MC/CUMM (3.8-5.5); Red Cell Distribution Width 14.2 % (9.3-17.3); White Blood Count 10.1 T/CUMM (4-12)
[2021-10-21] MEDS: LEVOTHYROXINE 75 MCG TABLET PO SCH (06:12)
[2021-10-21 06:21] LABS: Calcium 8.4 MG/DL (8.5-10.1); Osmolality,Calculated 255.1 MOS/KG (273-304); Potassium 3.3 MMOL/L (3.5-5.1)
[2021-10-21] MEDS: SODIUM CHLORIDE 0.9% 1,000 ML IV SCH ×2 (08:14→18:00)
[2021-10-21] MEDS: INSULIN REGULAR 100 UNIT/ML SUBCUT SCH ×4 (08:16→21:10)
[2021-10-21] MEDS: ZIPRASIDONE 20 MG/1 ML VIAL IM PRN (10:21)
[2021-10-21] MEDS: carvediloL 3.125 MG TABLET PO SCH ×2 (10:22→17:38)
[2021-10-21] MEDS: FINASTERIDE 5 MG TABLET PO SCH (10:22)
[2021-10-21] MEDS: DOCUSATE SODIUM 100 MG CAPSULE PO SCH ×2 (10:22→21:09)
[2021-10-21] MEDS: ATORVASTATIN 20 MG TABLET PO SCH (10:22)
[2021-10-21] MEDS: LINACLOTIDE 145 MCG CAPSULE PO SCH (10:27)
[2021-10-21] MEDS: FLUTICASONE 50 MCG NASAL SPRAY 16 GM BOTTLE BOTH NARES SCH ×2 (10:27→21:10)
[2021-10-21] MEDS: methylPREDNISolone SOD SUC 40 MG/1 ML VIAL IV SCH (17:38)
[2021-10-21 20:55] LABS: Mucus,Urine Occasional /LPF (Occasional); RBC,Urine 5 /HPF (0-4); Urine Appearance Clear (Clear); Urine Color Yellow (Yellow)
[2021-10-21 20:56] LABS: Bilirubin,Urine Negative (Negative); Blood, Urine Small mg/dL (Negative); Glucose,Urine (UA) 250 mg/dL (Negative); Ketones,Urine Trace mg/dL (Negative); Nitrite,Urine Negative (Negative); Protein,Urine Negative (Negative); Urine Urobilinogen 0.2 eU/dL (<2.0)
[2021-10-21] MEDS: QUEtiapine 25 MG TABLET PO SCH (21:09)
[2021-10-21] MEDS: AMITRIPTYLINE 100 MG TABLET PO SCH (21:10)
[2021-10-21] MEDS: ENOXAPARIN 40 MG/0.4 ML SYRINGE SUBCUT SCH (21:10)
[2021-10-21] MEDS: TERAZOSIN 5 MG CAPSULE PO SCH (21:10)
[2021-10-22] MEDS: ALBUTEROL/IPRATROPIUM 3 ML NEB RESP TX SCH ×4 (00:14→19:37)
[2021-10-22] MEDS: SODIUM CHLORIDE 0.9% 1,000 ML IV SCH ×2 (00:50→15:07)
[2021-10-22] MEDS: POTASSIUM CHLORIDE 20 MEQ TABLET PO PRN (01:04)
[2021-10-22] MEDS: PIPERACILLIN/TAZOBACTAM 3,375 MG in SODIUM CHLORIDE 0.9% 100 ML IV SCH ×2 (01:04→09:23)
[2021-10-22] MEDS: methylPREDNISolone SOD SUC 40 MG/1 ML VIAL IV SCH (02:12)
[2021-10-22] MEDS: LEVOTHYROXINE 75 MCG TABLET PO SCH (05:51)
[2021-10-22 06:55] LABS: Basophils % 0.2 % (0.0-0.8); Hematocrit 42.7 VOL% (42.0-52.0); Hemoglobin 14.3 GM/DL (14.0-18.0); Immature Granulocytes % 0.9 %; Immature Granulocytes Absolute 0.14 #; Lymphocytes # 0.6 10*3/uL (1.4-4.0); Lymphocytes % 3.9 % (21.2-54.2); Mean Corpuscular HGB Conc 33.5 GM/DL (32-36); Mean Corpuscular Volume 92.4 FL (87-102); Mean Platelet Volume 8.3 FL (9.6-12.0); Monocytes % 6.7 % (1.7-12.7); Neutrophils % 88.3 % (38.7-73.9); Platelet Count 212 T/CUMM (130-400); Red Blood Count 4.62 MC/CUMM (3.8-5.5); Red Cell Distribution Width 14.6 % (9.3-17.3); White Blood Count 14.9 T/CUMM (4-12)
[2021-10-22 07:14] LABS: Calcium 8.2 MG/DL (8.5-10.1); Osmolality,Calculated 265.4 MOS/KG (273-304); Potassium 3.9 MMOL/L (3.5-5.1)
[2021-10-22 07:22] LABS: Lymphocytes 6 % (20-55); Platelet Estimate Adequate; Total Cells Counted 100
[2021-10-22 07:24] LABS: Risk Ratio 2.23; VLDL Cholesterol 13.6 MG/DL
[2021-10-22] MEDS ORDERED: ERGOCALCIFEROL 50,000 UNIT CAPSULE PO SCH (08:00)
[2021-10-22] MEDS: INSULIN REGULAR 100 UNIT/ML SUBCUT SCH ×4 (08:33→22:03)
[2021-10-22] MEDS: FINASTERIDE 5 MG TABLET PO SCH (09:21)
[2021-10-22] MEDS: carvediloL 3.125 MG TABLET PO SCH ×2 (09:21→17:21)
[2021-10-22] MEDS: LINACLOTIDE 145 MCG CAPSULE PO SCH (09:22)
[2021-10-22] MEDS: ATORVASTATIN 20 MG TABLET PO SCH (09:22)
[2021-10-22] MEDS: DOCUSATE SODIUM 100 MG CAPSULE PO SCH ×2 (09:23→22:05)
[2021-10-22] MEDS: FLUTICASONE 50 MCG NASAL SPRAY 16 GM BOTTLE BOTH NARES SCH ×2 (09:23→22:05)
[2021-10-22] MEDS: ENOXAPARIN 40 MG/0.4 ML SYRINGE SUBCUT SCH (22:04)
[2021-10-22] MEDS: AMITRIPTYLINE 100 MG TABLET PO SCH (22:05)
[2021-10-22] MEDS: QUEtiapine 25 MG TABLET PO SCH (22:05)
[2021-10-22] MEDS: TERAZOSIN 5 MG CAPSULE PO SCH (22:08)
[2021-10-23] MEDS: ALBUTEROL/IPRATROPIUM 3 ML NEB RESP TX SCH ×4 (00:07→19:01)
[2021-10-23 05:49] LABS: Basophils # 0.1 10*3/uL (0.0-0.2); Basophils % 0.4 % (0.0-0.8); Eosinophils # 0.1 10*3/uL (0.0-0.87); Eosinophils % 0.5 % (0.00-10.9); Hematocrit 43.5 VOL% (42.0-52.0); Hemoglobin 14.6 GM/DL (14.0-18.0); Immature Granulocytes % 1.2 %; Immature Granulocytes Absolute 0.15 #; Lymphocytes # 0.9 10*3/uL (1.4-4.0); Mean Corpuscular HGB Conc 33.6 GM/DL (32-36); Mean Corpuscular Volume 91.2 FL (87-102); Mean Platelet Volume 8.3 FL (9.6-12.0); Monocytes % 7.3 % (1.7-12.7); Neutrophils % 83.6 % (38.7-73.9); Platelet Count 208 T/CUMM (130-400); Red Blood Count 4.77 MC/CUMM (3.8-5.5); Red Cell Distribution Width 14.5 % (9.3-17.3)
[2021-10-23 06:04] LABS: Calcium 8.4 MG/DL (8.5-10.1); Osmolality,Calculated 258.8 MOS/KG (273-304)
[2021-10-23] MEDS: LEVOTHYROXINE 75 MCG TABLET PO SCH (06:25)
[2021-10-23] MEDS: carvediloL 3.125 MG TABLET PO SCH ×2 (08:58→18:36)
[2021-10-23] MEDS: INSULIN REGULAR 100 UNIT/ML SUBCUT SCH ×4 (08:58→23:01)
[2021-10-23] MEDS: DOCUSATE SODIUM 100 MG CAPSULE PO SCH ×2 (08:59→20:07)
[2021-10-23] MEDS: POTASSIUM CHLORIDE 20 MEQ TABLET PO PRN ×2 (08:59→16:51)
[2021-10-23] MEDS: predniSONE 20 MG TABLET PO SCH (08:59)
[2021-10-23] MEDS: ATORVASTATIN 20 MG TABLET PO SCH (08:59)
[2021-10-23] MEDS: FINASTERIDE 5 MG TABLET PO SCH (08:59)
[2021-10-23] MEDS: LINACLOTIDE 145 MCG CAPSULE PO SCH (09:00)
[2021-10-23] MEDS: FLUTICASONE 50 MCG NASAL SPRAY 16 GM BOTTLE BOTH NARES SCH ×2 (09:00→23:08)
[2021-10-23 22:55] LABS: Hematocrit 41.8 VOL% (42.0-52.0); Hemoglobin 14.2 GM/DL (14.0-18.0)
[2021-10-23] MEDS: ENOXAPARIN 40 MG/0.4 ML SYRINGE SUBCUT SCH (23:06)
[2021-10-23] MEDS: TERAZOSIN 5 MG CAPSULE PO SCH (23:07)
[2021-10-23] MEDS: AMITRIPTYLINE 100 MG TABLET PO SCH (23:07)
[2021-10-23] MEDS: QUEtiapine 25 MG TABLET PO SCH (23:07)
[2021-10-24] MEDS: ALBUTEROL/IPRATROPIUM 3 ML NEB RESP TX SCH ×4 (00:19→19:16)
[2021-10-24 05:14] LABS: Hematocrit 38.4 VOL% (42.0-52.0); Hemoglobin 13.2 GM/DL (14.0-18.0)
[2021-10-24] MEDS: LEVOTHYROXINE 75 MCG TABLET PO SCH (06:15)
[2021-10-24] MEDS: INSULIN REGULAR 100 UNIT/ML SUBCUT SCH ×4 (08:08→20:50)
[2021-10-24 08:55] LABS: Basophils # 0.1 10*3/uL (0.0-0.2); Basophils % 0.4 % (0.0-0.8); Eosinophils # 0.1 10*3/uL (0.0-0.87); Eosinophils % 0.6 % (0.00-10.9); Hematocrit 38.3 VOL% (42.0-52.0); Hemoglobin 13.2 GM/DL (14.0-18.0); Immature Granulocytes % 1.1 %; Immature Granulocytes Absolute 0.13 #; Lymphocytes # 0.6 10*3/uL (1.4-4.0); Lymphocytes % 5.3 % (21.2-54.2); Mean Corpuscular HGB Conc 34.5 GM/DL (32-36); Mean Corpuscular Volume 89.1 FL (87-102); Mean Platelet Volume 8.2 FL (9.6-12.0); Monocytes # 0.8 10*3/uL (0.11-0.8); Monocytes % 6.9 % (1.7-12.7); Neutrophils % 85.7 % (38.7-73.9); Platelet Count 194 T/CUMM (130-400); Red Cell Distribution Width 14.4 % (9.3-17.3); White Blood Count 12.1 T/CUMM (4-12)
[2021-10-24] MEDS: FINASTERIDE 5 MG TABLET PO SCH (09:09)
[2021-10-24] MEDS: ATORVASTATIN 20 MG TABLET PO SCH (09:09)
[2021-10-24] MEDS: predniSONE 20 MG TABLET PO SCH (09:09)
[2021-10-24] MEDS: carvediloL 3.125 MG TABLET PO SCH ×2 (09:10→16:50)
[2021-10-24] MEDS: FLUTICASONE 50 MCG NASAL SPRAY 16 GM BOTTLE BOTH NARES SCH ×2 (09:12→21:36)
[2021-10-24 09:17] LABS: Calcium 8.2 MG/DL (8.5-10.1); Osmolality,Calculated 256.9 MOS/KG (273-304); Potassium 3.1 MMOL/L (3.5-5.1)
[2021-10-24] MEDS: LINACLOTIDE 145 MCG CAPSULE PO SCH (09:54)
[2021-10-24] MEDS: DOCUSATE SODIUM 100 MG CAPSULE PO SCH ×2 (09:54→20:50)
[2021-10-24] MEDS: SODIUM CHLORIDE 0.9% 1,000 ML IV SCH ×2 (17:03→18:09)
[2021-10-24] MEDS: AMITRIPTYLINE 100 MG TABLET PO SCH (20:50)
[2021-10-24] MEDS: ENOXAPARIN 40 MG/0.4 ML SYRINGE SUBCUT SCH (20:50)
[2021-10-24] MEDS: QUEtiapine 25 MG TABLET PO SCH (20:51)
[2021-10-24] MEDS: TERAZOSIN 5 MG CAPSULE PO SCH (20:51)
[2021-10-25] MEDS: ALBUTEROL/IPRATROPIUM 3 ML NEB RESP TX SCH ×4 (00:11→20:30)
[2021-10-25 05:54] LABS: Basophils % 0.3 % (0.0-0.8); Eosinophils % 0.2 % (0.00-10.9); Hematocrit 40.8 VOL% (42.0-52.0); Hemoglobin 13.8 GM/DL (14.0-18.0); Immature Granulocytes % 2.6 %; Immature Granulocytes Absolute 0.31 #; Lymphocytes # 0.9 10*3/uL (1.4-4.0); Lymphocytes % 7.1 % (21.2-54.2); Mean Corpuscular HGB Conc 33.8 GM/DL (32-36); Mean Corpuscular Volume 89.3 FL (87-102); Mean Platelet Volume 8.1 FL (9.6-12.0); Monocytes % 8.4 % (1.7-12.7); Neutrophils % 81.4 % (38.7-73.9); Platelet Count 211 T/CUMM (130-400); Red Blood Count 4.57 MC/CUMM (3.8-5.5); Red Cell Distribution Width 14.3 % (9.3-17.3); White Blood Count 12.1 T/CUMM (4-12)
[2021-10-25] MEDS: LEVOTHYROXINE 75 MCG TABLET PO SCH (06:11)
[2021-10-25 06:22] LABS: Calcium 8.5 MG/DL (8.5-10.1); Osmolality,Calculated 264.4 MOS/KG (273-304)
[2021-10-25] MEDS: SODIUM CHLORIDE 0.9% 1,000 ML IV SCH ×4 (08:31→23:00)
[2021-10-25] MEDS: INSULIN REGULAR 100 UNIT/ML SUBCUT SCH ×4 (08:32→20:00)
[2021-10-25] MEDS: DOCUSATE SODIUM 100 MG CAPSULE PO SCH ×2 (10:16→20:00)
[2021-10-25] MEDS: FINASTERIDE 5 MG TABLET PO SCH (10:17)
[2021-10-25] MEDS: carvediloL 3.125 MG TABLET PO SCH (10:17)
[2021-10-25] MEDS: ATORVASTATIN 20 MG TABLET PO SCH (10:17)
[2021-10-25] MEDS: LINACLOTIDE 145 MCG CAPSULE PO SCH (10:17)
[2021-10-25] MEDS: predniSONE 20 MG TABLET PO SCH (10:17)
[2021-10-25] MEDS: FLUTICASONE 50 MCG NASAL SPRAY 16 GM BOTTLE BOTH NARES SCH ×2 (10:17→20:00)
[2021-10-25] MEDS: carvediloL 6.25 MG TABLET PO SCH (16:14)
[2021-10-25] MEDS: ZIPRASIDONE 20 MG/1 ML VIAL IM PRN ×2 (16:40→22:50)
[2021-10-25] MEDS: ENOXAPARIN 40 MG/0.4 ML SYRINGE SUBCUT SCH (20:00)
[2021-10-25] MEDS: TERAZOSIN 5 MG CAPSULE PO SCH (20:00)
[2021-10-25] MEDS: QUEtiapine 25 MG TABLET PO SCH (20:00)
[2021-10-25] MEDS: AMITRIPTYLINE 100 MG TABLET PO SCH (20:00)
[2021-10-25] MEDS: POTASSIUM CHLORIDE 20 MEQ TABLET PO PRN (22:59)
[2021-10-26] MEDS: POTASSIUM CHLORIDE 20 MEQ TABLET PO PRN ×5 (00:36→22:03)
[2021-10-26] MEDS: VANCOMYCIN 125 MG CAPSULE PO SCH ×4 (03:50→22:00)
[2021-10-26] MEDS: LEVOTHYROXINE 75 MCG TABLET PO SCH (05:34)
[2021-10-26] MEDS: NICOTINE 21 MG/24 HR PATCH TRANSDERM PRN (06:00)
[2021-10-26 06:12] LABS: Basophils % 0.2 % (0.0-0.8); Eosinophils # 0.1 10*3/uL (0.0-0.87); Eosinophils % 0.4 % (0.00-10.9); Hematocrit 42.9 VOL% (42.0-52.0); Hemoglobin 14.2 GM/DL (14.0-18.0); Immature Granulocytes % 1.1 %; Immature Granulocytes Absolute 0.15 #; Lymphocytes # 0.8 10*3/uL (1.4-4.0); Lymphocytes % 6.2 % (21.2-54.2); Mean Corpuscular HGB Conc 33.1 GM/DL (32-36); Mean Corpuscular Volume 91.5 FL (87-102); Mean Platelet Volume 8.1 FL (9.6-12.0); Monocytes # 1.3 10*3/uL (0.11-0.8); Monocytes % 9.8 % (1.7-12.7); Neutrophils % 82.3 % (38.7-73.9); Platelet Count 242 T/CUMM (130-400); Red Blood Count 4.69 MC/CUMM (3.8-5.5); Red Cell Distribution Width 14.5 % (9.3-17.3); White Blood Count 13.5 T/CUMM (4-12)
[2021-10-26 06:18] LABS: Osmolality,Calculated 268.2 MOS/KG (273-304); Potassium 3.2 MMOL/L (3.5-5.1)
[2021-10-26] MEDS: ALBUTEROL/IPRATROPIUM 3 ML NEB RESP TX SCH ×4 (07:15→19:06)
[2021-10-26] MEDS: INSULIN REGULAR 100 UNIT/ML SUBCUT SCH ×4 (08:15→21:59)
[2021-10-26] MEDS ORDERED: TUBERCULIN SKIN TEST 0.1 ML SYRINGE INTRADERM ONE (09:00)
[2021-10-26] MEDS: NICOTINE 21 MG/24 HR PATCH TRANSDERM SCH (09:34)
[2021-10-26] MEDS: FINASTERIDE 5 MG TABLET PO SCH (09:34)
[2021-10-26] MEDS: ATORVASTATIN 20 MG TABLET PO SCH (09:34)
[2021-10-26] MEDS: FLUTICASONE 50 MCG NASAL SPRAY 16 GM BOTTLE BOTH NARES SCH ×2 (09:34→20:50)
[2021-10-26] MEDS: DOCUSATE SODIUM 100 MG CAPSULE PO SCH ×2 (09:34→20:50)
[2021-10-26] MEDS: carvediloL 6.25 MG TABLET PO SCH ×2 (09:34→17:05)
[2021-10-26] MEDS: QUEtiapine 25 MG TABLET PO SCH ×2 (09:34→20:50)
[2021-10-26] MEDS: AMITRIPTYLINE 100 MG TABLET PO SCH (20:50)
[2021-10-26] MEDS: TERAZOSIN 5 MG CAPSULE PO SCH (20:50)
[2021-10-26] MEDS: ENOXAPARIN 40 MG/0.4 ML SYRINGE SUBCUT SCH (20:50)
[2021-10-26] MEDS: ZIPRASIDONE 20 MG/1 ML VIAL IM PRN (23:30)
[2021-10-27] MEDS: ALBUTEROL/IPRATROPIUM 3 ML NEB RESP TX SCH ×3 (00:14→07:21)
[2021-10-27] MEDS: VANCOMYCIN 125 MG CAPSULE PO SCH ×2 (05:00→09:27)
[2021-10-27] MEDS: ACETAMINOPHEN 325 MG TABLET PO PRN (05:00)
[2021-10-27] MEDS: LEVOTHYROXINE 75 MCG TABLET PO SCH (05:33)
[2021-10-27 05:53] LABS: Basophils # 0.1 10*3/uL (0.0-0.2); Basophils % 0.7 % (0.0-0.8); Eosinophils # 0.2 10*3/uL (0.0-0.87); Eosinophils % 1.7 % (0.00-10.9); Hematocrit 40.9 VOL% (42.0-52.0); Hemoglobin 13.7 GM/DL (14.0-18.0); Immature Granulocytes % 1.3 %; Immature Granulocytes Absolute 0.16 #; Lymphocytes # 1.3 10*3/uL (1.4-4.0); Lymphocytes % 10.5 % (21.2-54.2); Mean Corpuscular HGB Conc 33.5 GM/DL (32-36); Mean Corpuscular Volume 90.9 FL (87-102); Mean Platelet Volume 8.1 FL (9.6-12.0); Monocytes # 1.1 10*3/uL (0.11-0.8); Monocytes % 9.3 % (1.7-12.7); Neutrophils % 76.5 % (38.7-73.9); Platelet Count 201 T/CUMM (130-400); Red Cell Distribution Width 14.6 % (9.3-17.3); White Blood Count 12.3 T/CUMM (4-12)
[2021-10-27 06:17] LABS: Osmolality,Calculated 263.4 MOS/KG (273-304); Phosphorous 2.5 MG/DL (2.5-4.9); Potassium 3.8 MMOL/L (3.5-5.1)
[2021-10-27] MEDS: INSULIN REGULAR 100 UNIT/ML SUBCUT SCH (08:02)
[2021-10-27 08:49] VITALS: BP 107/69
[2021-10-27] MEDS: DOCUSATE SODIUM 100 MG CAPSULE PO SCH (08:54)
[2021-10-27] MEDS: ATORVASTATIN 20 MG TABLET PO SCH (08:54)
[2021-10-27] MEDS: carvediloL 6.25 MG TABLET PO SCH (08:54)
[2021-10-27] MEDS: NICOTINE 21 MG/24 HR PATCH TRANSDERM SCH (08:55)
[2021-10-27] MEDS: QUEtiapine 25 MG TABLET PO SCH (08:55)
[2021-10-27] MEDS: FLUTICASONE 50 MCG NASAL SPRAY 16 GM BOTTLE BOTH NARES SCH (09:23)
[2021-10-27] MEDS: FINASTERIDE 5 MG TABLET PO SCH (09:45)
== END 2021-10-27 10:26 | DRG 640 ==
LOC: N.ED 12:26 → N.EDINP 15:49 → SUATTDRO 15:49 → N.EDINP 16:55 → N.5E 17:24
PROVIDERS: ADMIT Family Medicine; ATTEND Internal Medicine